=== PATIENT | male | born 1990 | race Two or more races ===

== ENCOUNTER 2017-08-21 03:47 | Emergency (ER) | payer SELFPAY ==
[~2017-08-21] VITALS: Ht 177.8 cm; Wt 65.8 kg
--- NOTE | 2017-08-21 04:05 | ER Report ---
History and Physical Time Seen By MD: 04:04 Hx. of Stated Complaint: ELEVATED HEART RATE; LEFT LOWER ABDOMINAL PAIN HPI/ROS CHIEF COMPLAINT: Abdominal pain, blood in the stools HISTORY OF PRESENT ILLNESS: This is a 27-year-old male. He indicates that he is having abdominal pain. This is in the left lower quadrant. He has been having some problems with constipation. He is noticed some red blood in the stools. He was seen recently at [facility] for this and started on Colace. Also recommended to start Tati lax but has not done this yet. He is having some increased pain tonight, also nausea with vomiting. He also has a headache. He notes a few days ago he did have a dizzy episode and ended up passing out. Does not sound like he had a head injury at the time but that is questionable. He also is having a lot of anxiety. 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 Denies any fevers or chills. No shortness of breath or chest pain. Normal urination. Allergies: Coded Allergies: No Known Drug Allergies (Unverified , 08/21/17) Home Meds Active Scripts Ondansetron (ZOFRAN ODT) 4 Mg Tab.rapdis, 4 MG PO Q6H Y for NAUSEA/VOMITING, # 20 TAB.BRIA 0 Refills Prov:HIMANSHU ALEXANDER MD 08/21/17 Reported Medications Docusate Sodium (COLACE) 100 Mg Capsule, 100 MG PO, CAPSULE 08/21/17 Cephalexin Monohydrate (CEPHALEXIN) 500 Mg Cap, 500 MG PO Q6H, CAP 08/21/17 Reviewed Nurses Notes: Yes Hx Substance Use Disorder: No Hx Alcohol Use: Yes (OCC.) Constitutional Vital Sign - Last 24 Hours 08/21/17 08/21/17 08/21/17 08/21/17 03:53 03:55 04:17 04:33 Temp 82.0 Pulse 99 85 Resp 19 B/P (MAP) 122/81 122/81 (95) 119/80 (93) Pulse Ox 99 99 O2 Delivery Room Air 08/21/17 08/21/17 08/21/17 08/21/17 05:00 05:17 05:17 06:29 Pulse 78 78 73 B/P (MAP) 126/76 (93) 114/87 (96) Pulse Ox 100 100 100 08/21/17 06:57 B/P (MAP) 116/83 (94) Physical Exam General Appearance: The patient is alert. No acute distress, but is anxious. Eyes: Pupils are equal, round. No pallor, injection or icterus. ENT: Mucous membranes are moist. Normal oral mucosa. Posterior oropharynx is normal. Neck: Supple and non tender. Respiratory: Lungs are clear to auscultation. Cardiovascular: Regular rate and rhythm. No murmurs, gallops or rubs. No edema. Gastrointestinal: Abdomen is soft, tender in the left lower abdomen. Nondistended. No rebound or guarding. No masses or organomegaly. Normal active bowel sounds. Neurological: Alert and oriented x3. No focal neurologic deficits Skin: Warm and dry. No rashes. Musculoskeletal: Normal range of motion. No musculoskeletal tenderness. DIFFERENTIAL DIAGNOSIS: After history and physical exam, differential diagnosis was considered for a patient with abdominal pain in the left lower quadrant and blood in the stool. We will go ahead and check labs and a CT scan. Also concerned with the recent dizzy episode and passing out and his headache that he could've had a head injury with concussion, or other cause of his headache. No other bleeding, but would need to rule out bleeding in the brain as the cause of his headache as well. Medical Decision Making Data Points Result Diagram: 08/21/17 0412 08/21/17 0412 Laboratory Hematology Test 08/21/17 04:12 08/21/17 04:47 Red Blood Count 5.54 M/uL (4.00-5.60) Mean Corpuscular Volume 82.4 fL (80.0-96.0) Mean Corpuscular Hemoglobin 27.5 pg (26.0-33.0) Mean Corpuscular Hemoglobin Concent 33.4 g/dL (32.0-36.0) Red Cell Distribution Width 14.7 % (11.5-14.5) Mean Platelet Volume 9.3 fL (7.2-11.1) Neutrophils (%) (Auto) 49.7 % (39.4-72.5) Lymphocytes (%) (Auto) 27.5 % (17.6-49.6) Monocytes (%) (Auto) 15.7 % (4.1-12.4) Eosinophils (%) (Auto) 6.3 % (0.4-6.7) Basophils (%) (Auto) 0.8 % (0.3-1.4) Nucleated RBC Relative Count (auto) 0.0 /100WBC Neutrophils # (Auto) 3.3 K/uL (2.0-7.4) Lymphocytes # (Auto) 1.8 K/uL (1.3-3.6) Monocytes # (Auto) 1.0 K/uL (0.3-1.0) Eosinophils # (Auto) 0.4 K/uL (0.0-0.5) Basophils # (Auto) 0.1 K/uL (0.0-0.1) Nucleated RBC Absolute Count (auto) 0.00 K/uL Sodium Level 141 mmol/L (137-145) Potassium Level 3.6 mmol/L (3.5-5.0) Chloride Level 102 mmol/L (98-107) Carbon Dioxide Level 25 mmol/L (22-30) Blood Urea Nitrogen 7 mg/dl (9-21) Creatinine 1.00 mg/dl (0.66-1.25) Glomerular Filtration Rate Calc > 60.0 Random Glucose 113 mg/dl (75-110) Calcium Level 9.0 mg/dl (8.4-10.2) Total Bilirubin 0.5 mg/dl (0.2-1.3) Aspartate Amino Transf (AST/SGOT) 44 U/L (0-35) Alanine Aminotransferase (ALT/SGPT) 39 U/L (0-56) Alkaline Phosphatase 80 U/L (0-126) C-Reactive Protein < 0.5 mg/dl (<1.0) Total Protein 7.9 gm/dl (6.3-8.2) Albumin 4.2 g/dl (3.5-5.0) Urine Color Colorless Urine Clarity Clear Urine pH 7.0 pH (4.8-9.5) Urine Specific [place] 1.003 Urine Protein Negative mg/dL (NEGATIVE) Urine Glucose (UA) Negative mg/dL (NEGATIVE) Urine Ketones Negative mg/dL (NEGATIVE) Urine Blood Negative (NEGATIVE) Urine Nitrite Negative (NEGATIVE) Urine Bilirubin Negative (NEGATIVE) Urine Urobilinogen Negative mg/dL (0.2-1.9) Urine Leukocyte Esterase Negative (NEGATIVE) Urine RBC None /HPF (0-2/HPF) Urine WBC <1 /HPF (0-5/HPF) Urine Squamous Epithelial Cells None /LPF (</=FEW) Urine Bacteria Negative /HPF (NONE-FEW) Urine Mucus None /HPF (NONE-FEW) Chemistry Test 08/21/17 04:12 08/21/17 04:47 White Blood Count 6.6 k/uL (4.5-11.0) Red Blood Count 5.54 M/uL (4.00-5.60) Hemoglobin 15.3 g/dL (14.0-18.0) Hematocrit 45.7 % (42.0-52.0) Mean Corpuscular Volume 82.4 fL (80.0-96.0) Mean Corpuscular Hemoglobin 27.5 pg (26.0-33.0) Mean Corpuscular Hemoglobin Concent 33.4 g/dL (32.0-36.0) Red Cell Distribution Width 14.7 % (11.5-14.5) Platelet Count 160 K/uL (150-450) Mean Platelet Volume 9.3 fL (7.2-11.1) Neutrophils (%) (Auto) 49.7 % (39.4-72.5) Lymphocytes (%) (Auto) 27.5 % (17.6-49.6) Monocytes (%) (Auto) 15.7 % (4.1-12.4) Eosinophils (%) (Auto) 6.3 % (0.4-6.7) Basophils (%) (Auto) 0.8 % (0.3-1.4) Nucleated RBC Relative Count (auto) 0.0 /100WBC Neutrophils # (Auto) 3.3 K/uL (2.0-7.4) Lymphocytes # (Auto) 1.8 K/uL (1.3-3.6) Monocytes # (Auto) 1.0 K/uL (0.3-1.0) Eosinophils # (Auto) 0.4 K/uL (0.0-0.5) Basophils # (Auto) 0.1 K/uL (0.0-0.1) Nucleated RBC Absolute Count (auto) 0.00 K/uL Glomerular Filtration Rate Calc > 60.0 Calcium Level 9.0 mg/dl (8.4-10.2) Total Bilirubin 0.5 mg/dl (0.2-1.3) Aspartate Amino Transf (AST/SGOT) 44 U/L (0-35) Alanine Aminotransferase (ALT/SGPT) 39 U/L (0-56) Alkaline Phosphatase 80 U/L (0-126) C-Reactive Protein < 0.5 mg/dl (<1.0) Total Protein 7.9 gm/dl (6.3-8.2) Albumin 4.2 g/dl (3.5-5.0) Urine Color Colorless Urine Clarity Clear Urine pH 7.0 pH (4.8-9.5) Urine Specific [place] 1.003 Urine Protein Negative mg/dL (NEGATIVE) Urine Glucose (UA) Negative mg/dL (NEGATIVE) Urine Ketones Negative mg/dL (NEGATIVE) Urine Blood Negative (NEGATIVE) Urine Nitrite Negative (NEGATIVE) Urine Bilirubin Negative (NEGATIVE) Urine Urobilinogen Negative mg/dL (0.2-1.9) Urine Leukocyte Esterase Negative (NEGATIVE) Urine RBC None /HPF (0-2/HPF) Urine WBC <1 /HPF (0-5/HPF) Urine Squamous Epithelial Cells None /LPF (</=FEW) Urine Bacteria Negative /HPF (NONE-FEW) Urine Mucus None /HPF (NONE-FEW) Urinalysis Test 08/21/17 04:47 Urine Color Colorless Urine Clarity Clear Urine pH 7.0 pH (4.8-9.5) Urine Specific [place] 1.003 Urine Protein Negative mg/dL (NEGATIVE) Urine Glucose (UA) Negative mg/dL (NEGATIVE) Urine Ketones Negative mg/dL (NEGATIVE) Urine Blood Negative (NEGATIVE) Urine Nitrite Negative (NEGATIVE) Urine Bilirubin Negative (NEGATIVE) Urine Urobilinogen Negative mg/dL (0.2-1.9) Urine Leukocyte Esterase Negative (NEGATIVE) Urine RBC None /HPF (0-2/HPF) Urine WBC <1 /HPF (0-5/HPF) Urine Squamous Epithelial Cells None /LPF (</=FEW) Urine Bacteria Negative /HPF (NONE-FEW) Urine Mucus None /HPF (NONE-FEW) EKG/Imaging EKG Interpretation 12 lead EKG: Rhythm: normal sinus rhythm [place]: normal QRS: normal ST segments: normal Imaging CHEST SINGLE AP COMPARISONS: None. ADDITIONAL PERTINENT HISTORY: Syncope and dizziness FINDINGS: Cardiomediastinal silhouette: Patient status post median sternotomy. Otherwise negative Pulmonary vasculature: Negative. Lung baker: Negative. Pleural spaces: Negative. Osseous structures: Negative. Surrounding soft tissues: Negative. IMPRESSION: No evidence of acute cardiopulmonary disease. Report Dictated By: Hi Tyler MD at 08/21/2017 6:[address] scan without contrast COMPARISONS: None ADDITIONAL PERTINENT HISTORY: Headache and dizziness TECHNIQUE: Multiple axial images were obtained from the skull base to the vertex without IV contrast. One of the following dose optimization techniques was utilized in the performance of this exam: Automated exposure control; adjustment of the mA and/or kV according to the patient's size; or use of an iterative reconstruction technique. Specific details can be referenced in the facility's radiology CT exam operational policy. FINDINGS: Midline shift: Negative Ventricles: Negative Brain parenchyma: Negative Extra-axial spaces: Negative Intracranial vasculature: Negative Osseous structures: Negative Paranasal sinuses and mastoid air cells: Mild to moderate mucosal thickening involving both maxillary sinuses as well as the ethmoid air cells. Surrounding soft tissues and orbits: Negative IMPRESSION: 1. Mild paranasal sinus disease. 2. No evidence of acute intracranial pathology. Report Dictated By: Hi Tyler MD at 08/21/2017 6:39 AM ABDOMEN/PELVIS WITH CONTRAST COMPARISONS: None. ADDITIONAL PERTINENT HISTORY: Left lower abdominal pain with blood in stool. TECHNIQUE: Multiple axial images were obtained from the lung bases through the lesser trochanters before and after the IV administration of IV contrast. One of the following dose optimization techniques was utilized in the performance of this exam: Automated exposure control; adjustment of the mA and/or kV according to the patient's size; or use of an iterative reconstruction technique. Specific details can be referenced in the facility's radiology CT exam operational policy. CONTRAST: 75 ml of Isovue-370 FINDINGS: Lung bases: Negative. Free air and free fluid: None. Liver: Negative. Spleen: Negative. Kidneys, ureters and urinary bladder: Negative. Adrenal glands: Negative. Pancreas: Negative. Gallbladder: Negative. Bowel and mesentery: Negative.. Pelvic contents: Negative Lymph node assessment: Negative. Retroperitoneum: Negative. Abdominal vasculature: Negative. Surrounding soft tissues: Negative. Osseous structures: Negative. IMPRESSION: Normal CT of the abdomen and pelvis with contrast. Report Dictated By: Hi Tyler MD at 08/21/2017 6:41 AM ED Course/Re-evaluation Clinical Indication for ER IV: Hydration, IV Access ED Course Imaging was negative. Labs are unremarkable. I did give the patient morphine and Phenergan to help with his abdominal pain and headache. The symptoms did improve although not completely. Discussed findings with the patient, recommended that he follow-up with his regular doctor and consider seeing a ux research associate or one of the local general surgeons to discuss further evaluation such as colonoscopy if needed for continued abdominal pain and blood in the stools. Otherwise he will continue his Colace and recommended using the Tati lax as well. Decision to Disposition Date: Aug 21, 2017 Decision to Disposition Time: 06:52 Depart Departure Latest Vital Signs Vital Signs Date Time Temp Pulse Resp B/P (MAP) Pulse Ox O2 Delivery O2 Flow Rate FiO2 08/21/17 06:57 116/83 (94) 08/21/17 06:29 73 100 08/21/17 03:53 82.0 19 Room Air Impression: Primary Impression: Abdominal pain Additional Impression: Headache Condition: Improved Disposition: HOME OR SELF-CARE New Scripts Ondansetron (ZOFRAN ODT) 4 Mg Tab.rapdis 4 MG PO Q6H Y for NAUSEA/VOMITING, #20 TAB.BRIA 0 Refills Prov: HIMANSHU ALEXANDER MD 08/21/17 Patient Instructions: Abdominal Pain (ED), Acute Headache (ED), Gastrointestinal Bleeding (ED) Additional Instructions: We did not find a serious cause for your abdominal pain and bleeding with bowels tonight. We do recommend follow-up with [facility] and consider seeing a gastrointestinal specialist for further evaluation. Consideration for Colonoscopy for further evaluation. Continue to use the Colace and consider starting the Miralax as recommended by your doctor. Rest and increase fluid intake. Tylenol as needed for headache. Problem Qualifiers Primary Impression: Abdominal pain Abdominal location: left lower quadrant Qualified Codes: R10.32 - Left lower quadrant pain Additional Impression: Headache Headache type: unspecified Headache chronicity pattern: unspecified pattern Intractability: not intractable Qualified Codes: R51 - Headache HIMANSHU ALEXANDER MD Aug 21, 2017 04:05
[2017-08-21] MEDS ORDERED: CEPH500C24 PO (04:06)
[2017-08-21] MEDS ORDERED: DOCU-416 PO (04:06)
[2017-08-21] MEDS ORDERED: NS(*) 0.9% 1000 ML BAG 1,000 ML IV ONE (04:20)
[2017-08-21 04:30] LABS: PLATELET COUNT, AUTOMATED 160 K/uL (150-450)
--- NOTE | 2017-08-21 04:40 | EKG ---
FACILITY: [facility] PATIENT NAME: JOSE L ALVARES : [id number] MR: [id number] V: [id number] EXAM DATE: ORDERING PHYSICIAN: HIMANSHU ALEXANDER TECHNOLOGIST: Homer Edmondson Reason : Blood Pressure : / mmHG Vent. Rate : 069 BPM Atrial Rate : 069 BPM P-R Int : 152 ms QRS Dur : 096 ms QT Int : 400 ms P-R-T Axes : 048 077 065 degrees QTc Int : 428 ms Normal sinus rhythm Normal ECG No previous ECGs available Confirmed by AVINASH MARTINS ([id number]) on 08/21/2017 7:45:37 AM Referred By: Confirmed By:AVINASH MARTINS
[2017-08-21] MEDS ORDERED: PROMETHAZINE 25 MG/ML 1 ML AMP IVP ONE (05:45)
[2017-08-21] MEDS ORDERED: MORPHINE 4 MG/ML SDV IVP ONE (05:45)
[2017-08-21] MEDS ORDERED: NS 0.9% 20 ML SDV 60 ML ONE (05:54)
[2017-08-21] MEDS ORDERED: IOPAMIDOL 76% 75 ML INFUS BTL 75 ML ONE (05:54)
--- NOTE | 2017-08-21 06:43 | RADIOLOGY IMAGING REPORT ---
FACILITY: [facility] PATIENT NAME: Yg Lang : 1990 MR: [id number] V: [id number] EXAM DATE: ORDERING PHYSICIAN: HIMANSHU ALEXANDER TECHNOLOGIST: [place] [facility] [place]g [place] : 1990 Visit/Account:[id number] Date of Sevice: 08/21/2017 CHEST SINGLE AP COMPARISONS: None. ADDITIONAL PERTINENT HISTORY: Syncope and dizziness FINDINGS: Cardiomediastinal silhouette: Patient status post median sternotomy. Otherwise negative Pulmonary vasculature: Negative. Lung baker: Negative. Pleural spaces: Negative. Osseous structures: Negative. Surrounding soft tissues: Negative. IMPRESSION: No evidence of acute cardiopulmonary disease. Report Dictated By: Hi Tyler MD at 08/21/2017 6:38 AM Report E-Signed By: Hi Tyler MD at 08/21/2017 6:38 AM WSN:[id number]
--- NOTE | 2017-08-21 06:44 | RADIOLOGY IMAGING REPORT ---
FACILITY: [facility] [place] PATIENT NAME: Yg Lang : 1990 MR: [id number] V: [id number] EXAM DATE: ORDERING PHYSICIAN: HIMANSHU ALEXANDER TECHNOLOGIST: Location: [facility] Patient: Yg Lang : 1990 Visit/Account:[id number] Date of Sevice: 08/21/[address] scan without contrast COMPARISONS: None ADDITIONAL PERTINENT HISTORY: Headache and dizziness TECHNIQUE: Multiple axial images were obtained from the skull base to the vertex without IV contrast . One of the following dose optimization techniques was utilized in the performance of this exam: Aut omated exposure control; adjustment of the mA and/or kV according to the patient's size; or use of an iterative reconstruction technique. Specific details can be referenced in the facility's radiology CT exam operational policy. FINDINGS: Midline shift: Negative Ventricles: Negative Brain parenchyma: Negative Extra-axial spaces: Negative Intracranial vasculature: Negative Osseous structures: Negative Paranasal sinuses and mastoid air cells: Mild to moderate mucosal thickening involving both maxillar y sinuses as well as the ethmoid air cells. Surrounding soft tissues and orbits: Negative IMPRESSION: 1. Mild paranasal sinus disease. 2. No evidence of acute intracranial pathology. Report Dictated By: Hi Tyler MD at 08/21/2017 6:39 AM Report E-Signed By: Hi Tyler MD at 08/21/2017 6:41 AM WSN:[id number]
--- NOTE | 2017-08-21 06:48 | RADIOLOGY IMAGING REPORT ---
FACILITY: [facility] [place] PATIENT NAME: Yg Lang : 1990 MR: [id number] V: [id number] EXAM DATE: ORDERING PHYSICIAN: HIMANSHU ALEXANDER TECHNOLOGIST: Location: [facility] Patient: Yg Lang : 1990 Visit/Account:[id number] Date of Sevice: 08/21/2017 ABDOMEN/PELVIS WITH CONTRAST COMPARISONS: None. ADDITIONAL PERTINENT HISTORY: Left lower abdominal pain with blood in stool. TECHNIQUE: Multiple axial images were obtained from the lung bases through the lesser trochanters bef ore and after the IV administration of IV contrast. One of the following dose optimization technique s was utilized in the performance of this exam: Automated exposure control; adjustment of the mA and/ or kV according to the patient's size; or use of an iterative reconstruction technique. Specific de tails can be referenced in the facility's radiology CT exam operational policy. CONTRAST: 75 ml of Isovue-370 FINDINGS: Lung bases: Negative. Free air and free fluid: None. Liver: Negative. Spleen: Negative. Kidneys, ureters and urinary bladder: Negative. Adrenal glands: Negative. Pancreas: Negative. Gallbladder: Negative. Bowel and mesentery: Negative.. Pelvic contents: Negative Lymph node assessment: Negative. Retroperitoneum: Negative. Abdominal vasculature: Negative. Surrounding soft tissues: Negative. Osseous structures: Negative. IMPRESSION: Normal CT of the abdomen and pelvis with contrast. Report Dictated By: Hi Tyler MD at 08/21/2017 6:41 AM Report E-Signed By: Hi Tyler MD at 08/21/2017 6:44 AM WSN:[id number]
[2017-08-21 06:57] VITALS: BP 116/83
[2017-08-21] MEDS ORDERED: ONDA4TAB PO (07:03)
[2017-08-21] MEDS ORDERED: ONDANSETRON 4 MG ODT TH SL ONE (07:05)
== END 2017-08-21 07:10 | disposition home or self-care (01) ==
LOC: ER 06:27
DX: R10.32 Left lower quadrant pain (principal); R51 Headache
CPT/HCPCS: 70450; 71045; 74177; 81001; 85025; 86140; 93005; 96361; 96374; 96375; 99284; J2270; J2550; J7030; J7050; Q9967; S0119; 82040; 82247; 82310; 82374; 82435; 82565; 82947; 84075; 84132; 84155; 84295; 84450; 84460; 84520